=== PATIENT | female | born 1970 | race Caucasian/White ===

== ENCOUNTER 2024-10-01 20:32 | Emergency (ER) | payer OTHER, SELFPAY ==
[2024-10-01 20:37] VITALS: BP 139/80
[2024-10-01 20:54] LABS: % Basophils 0.9 % (0-2); % Eosinophils 3.6 % (0-6); % Immature Granulocytes 0.3 % (0-0.5); % Lymphocytes 46.3 % (20.5-51.1); % Monocytes 6.8 % (1.7-9.3); % Neutrophils 42.1 % (42.2-75.2); Absolute Basophils 0.1 10^3/uL (0-0.2); Absolute Eosinophils 0.2 10^3/uL (0-0.7); Absolute Lymphocytes 2.9 10^3/uL (1.2-3.4); Absolute Monocytes 0.4 10^3/uL (0.1-0.6); Absolute Neutrophils 2.7 10^3/uL (1.4-6.5); Hematocrit 40.2 % (37.0-47.0); Hemoglobin 12.9 g/dL (12.0-16.0); Mean Corp Hgb Conc. 32.1 g/dL (33.0-37.0); Mean Corpuscular Hgb 27.6 pg (27.0-31.0); Mean Corpuscular Volume 85.9 fL (81.0-99.0); Mean Platelet Volume 9.9 fL (7.4-10.4); Nucleated Red Blood Cells % 0 %; Platelet Count 234 10^3/uL (130-400); Red Blood Cell Count 4.68 10^6/uL (4.20-5.40); Red Cell Dist. Width 12.9 % (11.5-14.5); White Blood Cell Count 6.4 10^3/uL (4.8-10.8)
[2024-10-01 21:15] LABS: ALT (SGPT) 45 U/L (0-35); AST (SGOT) 34 U/L (14-36); Albumin 4.2 g/dl (3.5-5.0); Alkaline Phosphatase 117 U/L (38-126); Blood Urea Nitrogen 13 mg/dl (7-17); Calcium 9.2 mg/dl (8.4-10.2); Carbon Dioxide 29 mmol/L (22-30); Chloride 106 mmol/L (98-107); Glucose 94 mg/dl (70-99); Potassium 4.2 mmol/L (3.5-5.1); Sodium 141 mmol/L (135-145); Total Bilirubin 0.3 mg/dl (0.2-1.3); Total Protein 6.5 g/dl (6.3-8.2); eGFR > 60.00
[2024-10-01 21:16] LABS: Troponin I < 0.012 ng/ml
[2024-10-01 23:05] VITALS: BMI 32.8
[2024-10-01 23:06] VITALS: BP 113/73
--- NOTE | 2024-10-01 23:52 | ED.GENMED ---
History of Present Illness
General
Chief Complaint: Chest Pain
Source: patient and family (Daughter who was present at bedside)
Time Seen by Provider: 10/01/24 22:58
Nursing documentation reviewed up to this point in time: agreed with
History of Present Illness
History of Present Illness:
54-year-old female presents to the emergency department with substernal nonradiating chest pain that began around 3 PM today. Patient states that the pain is under her left breast and midsternal. Patient does have anxiety and frequently gets chest
pain for her anxiety. She states that this is distinctly different. Denies shortness of breath. Reports no current chest pain. Patient does have anxiety and depression. She also had a stroke in 2019. She states that she gets migraine headaches
which began after having the stroke. She typically takes Imitrex but states that she did not take it today because the migraine came on after she had left her house. patient denies recent sickness. Denies fever, chills, nausea or vomiting. She
does have a family history of cardiac disease. Dad had an [place] at age 55. He was overweight and a smoker. Patient has seen cardiology at [place] but states that she wants to establish care here at [place]. Patient is a non-smoker. She does
not drink alcohol in excess. She used to have hypertension but then had gastric sleeve surgery and lost a significant amount of weight years ago. She has been weaned off of her medications after the weight loss.
Review of Systems
Review of Systems
Allergies reviewed?: Yes
All Other Systems: ROS reviewed and negative except as documented in HPI and ROS
Constitutional: Reports no symptoms
EENT: Reports no symptoms
Respiratory: Reports no symptoms
Cardiac: Reports chest pain
ABD/GI: Reports no symptoms
: Reports no symptoms
Musculoskeletal: Reports no symptoms
Skin: Reports no symptoms
Neurological: Reports no symptoms
Endocrine: Reports no symptoms
Hematologic/Lymphatic: Reports no symptoms
Psychiatric: Reports no symptoms
Phy Exam
General Physical Exam
General Presentation: well appearing and no apparent distress
General Skin: warm and dry
General Habitus: normal
General Mental: alert
General Hydration: appears well hydrated
ENT Exam
ENT Exam: EOMI, pharynx normal, neck supple and normocephalic
Eye Exam
Eye Exam: PERRL, cornea clear and conjunctiva normal
Cardiovascular Exam
Cardiovascular Exam: regular rate/rhythm, no edema, no murmur and normal peripheral pulses
Pulmonary Exam
Pulmonary Exam: lungs clear, no respiratory distress, no rales, no crackles, no rhonchi, no stridor, no wheezing and no cough
Gastrointestinal Exam
Gastrointestinal Exam: normal bowel sounds, non tender, soft, no organomegaly, no pulsatile mass and non distended
Neurological Exam
Neurological Exam: alert, oriented x3, no motor deficits and speech normal
Musculoskeletal Exam
Musculoskeletal Exam: full ROM and no edema
Skin Exam
Skin Exam: normal color, warm/dry, no rash and no petechia
Psychiatric Exam
Psychiatric Exam: normal mood/affect
Scores
Heart Score for Chest Pain Patients
STEMI patient?: No
History: Slightly or Non-Suspicious
ECG: Normal
Age: >45 - <65 years
Risk Factors: No Risk Factors
Troponin: </= Normal Limit
Heart Score for Chest Pain Patients: 1
Heart Score Risk: 2.5% MACE over next 6 weeks
Course
Orders/Labs/Results
Orders:
Orders
10/01/24 20:33
Electrocardiogram (*1) Urgent
Reason for Study: Chest Pain
EKG- Treatment ONCE
10/01/24 20:46
Complete Blood Count/With Diff Urgent
Comprehensive Metabolic Panel Urgent
Troponin I Urgent
10/01/24 23:23
EKG- Treatment ONCE
10/01/24 23:52
Ketorolac [Toradol] 15 mg IV NOW STA
CR Chest - 2 Views Urgent
Comment:
Reason For Exam: cp
10/01/24 23:59
EKG [Electrocardiogram (*1)] Urgent
Reason for Study: Chest Pain
Troponin I Urgent
Abnormal Lab Results
10/01/24
20:46
MCHC 32.1 L g/dL
(33.0-37.0)
Neutrophils % 42.1 L %
(42.2-75.2)
ALT 45 H U/L
(0-35)
10/01/24 20:46
10/01/24 20:46
Vital Signs
Initial and Last Documented VS:
Initial Vital Signs
Temp Pulse Resp BP Pulse Ox
97.5 F 71 15 139/80 100
10/01/24 20:37 10/01/24 20:37 10/01/24 20:37 10/01/24 20:37 10/01/24 20:37
Last Documented Vital Signs
Temp Pulse Resp BP Pulse Ox
98.0 F 62 18 113/73 97
10/01/24 23:06 10/01/24 23:30 10/01/24 23:06 10/01/24 23:06 10/01/24 23:30
*Critical Care Note
Total Time (30-74mins, 75-104mins- exclusive of procedures): Not Applicable
ED Attending Note
-
Portions of this chart may have been created with voice recognition software.� Occasional wrong word or��sound alike� substitutions may have occurred due to the inherent limitations of voice recognition software.
Discharge Plan
Departure
Instructions: Chest Pain [facility] Follow Up
Referrals:
Raina Santillan MD [Family Provider] -
[facility] [Provider Group] - Next open appointment
Activity Restrictions/Additional Instructions:
Thank You for choosing [facility].
It was a pleasure meeting you and taking part in your care. We hope for your continued healing and wellness.
Please read discharge instructions in their entirety. However, they are for general education and may not describe your exact diagnosis at discharge. Information on your ER visit and medical conditions were discussed with you along with appropriate
follow up information...
If indicated, please take your medications as instructed and indicated on discharge paperwork.
Please schedule a follow up appointment as directed. Call to schedule an appointment
Please return to the emergency department with ANY change in, persisting, or worsening of symptoms. If any of your symptoms do not improve, or persist, or become more severe within 6-12 hours, please return to the emergency department for further
care.
Please return to the emergency department if you develop a headache, neck pain/stiffness, fever greater than 100.4F, chest pain, shortness of breath, persistent nausea, vomiting, slurred speech, difficulty walking, numbness/tingling, weakness, signs
of infection or any other symptoms that are worrisome to you.
If you have any questions or concerns please do not hesitate to call the Hospital at or E-mail me directly at [email or web address]
Interventions
Interventions:
*Risk Screen - Suicide Last Done: 10/01/24 20:37
*General Assessment Last Done: 10/01/24 20:37
*Neglect/Abuse Screening Last Done: 10/01/24 20:37
*ED- Fall Risk Assessment Last Done: 10/01/24 23:05
*ED COVID-19 Vaccine History Last Done: 10/01/24 23:05
ED- Cardiac Assessment Last Done: 10/01/24 23:08
Discharge Date and Time
Print Language: LATVIAN
[2024-10-02] VITALS: BP 105/67
[2024-10-02] MEDS: TORADOL 15 MG IV (00:25)
[2024-10-02 00:51] LABS: Troponin I < 0.012 ng/ml
[2024-10-02 01:11] VITALS: BP 115/73
== END 2024-10-02 01:17 | disposition home or self-care (01) ==
LOC: EMR 20:32
PROVIDERS: Emergency Medicine; EMERGENCY PHYSICIAN Student in an Organized Health Care Education/Training Program; FAMILY PHYSICIAN Internal Medicine
DX: R07.89 Other chest pain (principal); F41.8 Other specified anxiety disorders; I10 Essential (primary) hypertension; Z82.49 Family history of ischemic heart disease and other diseases of the circulatory system; Z86.73 Personal history of transient ischemic attack (TIA), and cerebral infarction without residual deficits
CPT/HCPCS: 99283; 96374; 71046; 80053; 84484; 85025; 93005